=== PATIENT | male | born 1970 | race Caucasian/White ===

== ENCOUNTER → 2018-03-10 | Outpatient (CLI) | payer OTHER ==
[~2018-03-10] MED LIST: IOPAMIDOL 370 MG/ML 200 ML INFUS..BTL INJ ONE; SODIUM CHLORIDE 0.9% 50ML 50 ML ONE
--- NOTE | 2018-03-10 18:02 | Diagnostic Imaging Report ---
PROCEDURE:CT CHEST WITH CONTRAST COMPARISON:None. INDICATIONS:WEIGHT LOSS,SMOKER, TECHNIQUE: Axial CT images of the chest were obtained from the lung apices through the adrenal glands after the intravenous administration of 100 cc of nonionic contrast. Coronal and sagittal reformations were made available for review. RADIATION DOSE: Total DLP: 390.12 mGy*cm Estimated effective dose: (DLP x 0.014 x size factor) mSv FINDINGS: Lymph nodes: No enlarged axillary or supraclavicular lymph nodes. A right hilar lymph node measures 2.4 x 1.8 cm. A subcarinal lymph node measures 8 mm. The left hilar lymphoid tissue is mildly prominent but to a distinct fracture or measurement. No enlarged cardiophrenic lymph nodes. Thyroid/base of neck: Unremarkable. Heart \T\ Mediastinum:The heart is normal in size. No filling defects in the great vessels. No pericardial effusion. The esophagus is collapsed. There is a small amount of dependently layering mucus in the trachea extending into the angelika. There are webs of mucus in the mid trachea. Lungs: Right lung: Paraseptal emphysema and mild burden of centrilobular emphysema. Patchy airspace opacities throughout the superior segment and midportion of the lower lobe. No discrete mass. There is diffuse mild bronchial wall thickening suggestive of chronic bronchitis. Left lung: Ground glass airspace opacity in the apex with strands that abut the apical pleura. There is mild apical pleural parenchymal thickening. Paraseptal emphysema and minimal centrilobular emphysema is present. Small triangular focus of atelectasis/scar in the anterior basal segment of the lower lobe (image [id number]). Diffuse mild bronchial wall thickening. Pleura:No pleural effusion, pleural based mass, or pneumothorax. Upper abdomen:Visualized portions of the pancreas and spleen demonstrate no evidence of mass. Low attenuating lesion in segment 4 of the liver measures 5 mm and is too small to characterize. The adrenal glands visualized portions of the kidneys are unremarkable. Musculoskeletal:There is beam hardening artifact from a fusion plate in the right clavicle. Vertebral body heights are symmetric. No evidence of lytic or blastic lesion. CONCLUSION: 1. Patchy air space opacities throughout the right lower lobe are suggestive of an infectious/inflammatory process with reactive right hilar and mediastinal lymphadenopathy. Recommend follow-up CT in 8-10 weeks to document interval change/resolution. If this persists, a neoplastic process should be considered. 2. Diffuse bronchial wall thickening may be result of chronic bronchitis with foci of mucus in the trachea. 3. Paraseptal and centrilobular emphysema. Dictated by: Barbie Alegria M.D. on 03/10/2018 at 18:05 Electronically approved by: Barbie Alegria M.D. on 03/10/2018 at 18:05
== END ==
LOC: CT 16:53
PROVIDERS: ATTEND Family Medicine
DX: R63.4 Abnormal weight loss (principal)
CPT/HCPCS: 71260; Q9967

== ENCOUNTER → 2018-03-21 | Outpatient (CLI) | payer OTHER ==
[2018-03-21 16:17] LABS: BLOOD UREA NITROGEN 18 mg/dL (7-26); BUN/CREATININE RATIO 24 (6-25); CREATININE, SERUM 0.76 mg/dL (0.72-1.25); EST GLOMERULAR FILTRATION RATE > 60 ML/MIN (60-)
--- NOTE | 2018-03-21 17:11 | Diagnostic Imaging Report ---
PROCEDURE: CT ABDOMEN AND PELVIS WITH CONTRAST TECHNIQUE: The abdomen and pelvis were scanned utilizing a multidetector helical scanner from the diaphragm to the lesser trochanter after the IV administration of 100 cc of Isovue 370. Coronal and sagittal multiplanar reformations were obtained. DLP: 173.88 mGy-cm COMPARISON: Chest CT 03/10/2018 INDICATIONS: UNEXPLAINED WEIGHT LOSS, ABDOMINAL PAIN FINDINGS: LOWER THORAX: Partially visualized ground-glass and linear opacities in the right lower lobe, as noted on chest CT 03/10/2018. Follow should be obtained as previously discussed. HEPATOBILIARY: A low attenuating 0.6 cm lesion in the left hepatic lobe is too small to characterize but probably represents a cyst. Diffuse hypoattenuation of the liver relative to the spleen, suggestive of steatosis. No biliary ductal dilatation. No radiopaque gallstones or wall thickening. SPLEEN: No splenomegaly. PANCREAS: No focal masses or ductal dilatation. ADRENALS: No adrenal nodules. KIDNEYS/URETERS: No hydronephrosis, stones, or solid mass lesions. A low attenuating 0.5 cm lesion in the interpolar region of the right kidney is too small to characterize but probably represents a cyst. PELVIC ORGANS/BLADDER: Unremarkable. PERITONEUM / RETROPERITONEUM: No free air or fluid. LYMPH NODES: No lymphadenopathy. VESSELS: Mild atherosclerosis. Portal, splenic, superior mesenteric veins are patent. Celiac and superior mesenteric arteries are patent. Inferior mesenteric artery is partially visualized and grossly patent. GI TRACT: No distention or wall thickening. BONES AND SOFT TISSUES: No acute or aggressive osseous lesions. Bone island in the right aspect of the L1 vertebral body. IMPRESSION: No CT findings in the abdomen or pelvis to explain weight loss and abdominal pain. Dictated by: Donn Bethea M.D. on 03/21/2018 at 17:16 Electronically approved by: Donn Bethea M.D. on 03/21/2018 at 17:16
== END ==
LOC: CT 15:25
PROVIDERS: ATTEND Family Medicine
DX: R10.9 Unspecified abdominal pain (principal); R74.8 Abnormal levels of other serum enzymes; F17.210 Nicotine dependence, cigarettes, uncomplicated
CPT/HCPCS: 36415; 74177; 82565; 84520

== ENCOUNTER → 2018-03-28 | Outpatient (CLI) | payer OTHER ==
--- NOTE | 2018-03-28 12:18 | Diagnostic Imaging Report ---
PROCEDURE: X-RAY CHEST, TWO VIEWS COMPARISON: [facility], CT, CT CHEST W, 03/10/2018, 17:34. INDICATIONS: ABNORMAL CT SCAN FINDINGS: LUNGS: Diffusely hyperinflated with flattening of the diaphragms. Right lower lobe infiltrates are diminishing. PLEURA: No effusions or pneumothorax. HEART \T\ MEDIASTINUM: The heart is within normal size-limits. BONES \T\ SOFT TISSUES: Fusion plate in the right clavicle is intact without evidence of loosening. CONCLUSION: Diminishing right lower lobe infiltrates. No new pulmonary findings. Pulmonary hyperinflation suggestive of COPD. Dictated by: Barbie Alegria M.D. on 03/28/2018 at 12:22 Electronically approved by: Barbie Alegria M.D. on 03/28/2018 at 12:22
== END ==
LOC: RAD 10:18
PROVIDERS: ATTEND Internal Medicine Pulmonary Disease
DX: J98.11 Atelectasis (principal)
CPT/HCPCS: 71046

== ENCOUNTER → 2018-05-09 | Outpatient (CLI) | payer OTHER ==
--- NOTE | 2018-05-09 17:55 | Diagnostic Imaging Report ---
EXAM: CT Chest WITHOUT contrast 05/09/2018 3:00 PM INDICATION: \[id number] \S\[id number] \S\ENLARGED LYMPH NODES COMPARISON: Chest radiograph 03/28/[address] chest 03/10/2018 TECHNIQUE: Chest was scanned utilizing a multidetector helical scanner from the lung apex through the level of the adrenal glands without administration of IV contrast. Absence of intravenous contrast decreases sensitivity for detection of lymphadenopathy and vascular pathology. Coronal and sagittal reformations were obtained. Routine protocol was performed. IV CONTRAST: None COMPLICATIONS: None RADIATION DOSE: Total DLP: 273.6 mGy*cm Estimated effective dose: (DLP x 0.015 x size factor) mSv CTDIvol has been reviewed. It is below the limits set by the Radiation Protocol Committee (RPC). FINDINGS: LINES/ TUBES: None. LUNGS AND AIRWAYS: Right lower lobe consolidation seen on CT chest from 03/10/2018 and barely seen on 03/28/2018 CXR have resolved. There is residual faint groundglass opacity throughout the right lower lobe which may represent persistent inflammation. Linear scarring in the left lower lobe remains unchanged. No new consolidation, honeycombing, or suspicious pulmonary nodules. Extensive bilateral upper lobe predominant centrilobular and paraseptal emphysema. Mild bilateral central bronchiectasis, stable. PLEURA: The pleural spaces are clear. HEART AND MEDIASTINUM: The thyroid gland is normal. Persistent multiple small noncalcified mediastinal lymph nodes measuring up to 0.5 cm in transverse diameter. Bilateral hilar lymph nodes are difficult to evaluate on noncontrast CT but appear either unchanged or likely decreased. Fewer small bilateral axillary lymph nodes are unchanged. The heart is normal in size. There is no pericardial effusion. The thoracic aorta and pulmonary arteries are unremarkable. UPPER ABDOMEN: Unremarkable. BONES: Status post fixation of the right clavicle with plates and screws, unchanged. No acute bony abnormalities. Bone island at L1 vertebral body. SOFT TISSUES: Unremarkable. IMPRESSION: 1. Resolved right lower lobe consolidation due to resolving pneumonia was be aeration with persistent groundglass opacity which may represent inflammation. 2. Unchanged advanced bilateral emphysema and central bronchiectasis. 3. No new consolidations or suspicious pulmonary nodules. 4. Multiple mediastinal and hilar small lymph nodes are either unchanged or decreased. Signed by: Dr. Diana Terry M.D. on 05/09/2018 4:50 PM
== END ==
LOC: CT 15:28
PROVIDERS: ATTEND Internal Medicine Pulmonary Disease
DX: R59.9 Enlarged lymph nodes, unspecified (principal)
CPT/HCPCS: 71250